=== PATIENT | female | born 2000 | race Hispanic/Latino ===

== ENCOUNTER 2023-02-24 22:58 | Inpatient (IN) | payer BC, SELFPAY ==
--- NOTE | 2023-02-24 22:58 | LDADM ---
This patient, Mercy Villalobos, was admitted to Labor/Delivery/Recovery 104 on 02/24/23 at 22:58. [employer] Weight Calculator used during admission and education. Plans for labor, pain management and were discussed with patient. Patient/family oriented to hospital policies and general routines including ID bracelet, bed and alarms, visiting hours, pain management, procedures, bathroom and other care routines, personal items, smoking policy, room service/diet and guest tray routines, security routines, and visiting hours. Patient/Family are encouraged to report perceived risks to care and to ask questions if they do not understand what they are told or what they should do. See OBIX for further documentation.
[2023-02-24 23:17] VITALS: RESP 18; TEMP 37
[2023-02-24 23:36] LABS: Basophils Absolute Auto 0.1 K/mm3 (0.0-0.1); Basophils Percent Auto 0.3 % (0.2-1.2); Eosinophils Percent Auto 0.2 % (0-4.4); Hematocrit 37.8 % (37.0-47.0); Hemoglobin 12.3 g/dL (12.0-15.0); Immature Granulocyte Absolute 0.07 K/mm3 (0.00-0.031); Immature Granulocyte Percent A 0.4 % (0-0.5); Lymphocytes Absolute Auto 2.07 K/mm3 (0.9-3.2); Lymphocytes Percent Auto 12.8 % (18.3-44.2); Mean Corpuscular HGB Conc 32.5 g/dl (32-36); Mean Corpuscular Hemoglobin 27.3 pg (26-34); Mean Corpuscular Volume 83.8 fl (80-100); Mean Platelet Volume 11.4 fl (7.4-10.4); Monocytes Absolute Auto 0.7 K/mm3 (0.1-0.6); Monocytes Percent Auto 4.6 % (2.6-8.5); Neutrophils Absolute Auto 13.2 K/mm3 (1.3-6.7); Neutrophils Percent Auto 81.7 % (45.5-73.1); Platelet Count Result 238 k/mm3 (150-375); Red Blood Count 4.51 M/mm3 (4.2-5.4); Red Cell Distribution Width 15.6 % (11.5-14.5); White Blood Count 16.1 K/mm3 (4.5-10.0)
[2023-02-24 23:48] VITALS: BP 124/87; PULSE 82
[2023-02-25] VITALS (160 sets, daily range): BP systolic 95–134; BP diastolic 38–101; PULSE 52–213; RESP 16; TEMP 36.5–37.3; O2SAT 71–100; BMI 30.5
--- NOTE | 2023-02-25 00:01 | WPDANESEPP ---
Anes - Eval Pre Procedure Procedure: Labor epidural Date/Time: 02/25/23 00:01 Pre Op Diagnosis: ctx Patient Data Age: 22 Gender: F Height: Weight: Last Vital Signs Pulse 87 02/25/23 00:01 BP 127/84 02/25/23 00:01 Allergies Allergy/AdvReac Type Severity Reaction Status Date / Time tetracycline Allergy Rash Verified 02/24/23 23:39 Home Medications Medication Instructions Recorded Confirmed Type prenat.vits,mildred,mbr-ptlw-alrhh 1 tablet PO DAILY 02/24/23 02/24/23 History Laboratory Tests 02/24/23 23:30 WBC 16.1 H K/mm3 (4.5-10.0) RBC 4.51 M/mm3 (4.2-5.4) Hgb 12.3 g/dL (12.0-15.0) Hct 37.8 % (37.0-47.0) MCV 83.8 fl (80-100) MCH 27.3 pg (26-34) MCHC 32.5 g/dl (32-36) RDW 15.6 H % (11.5-14.5) Plt Count 238 k/mm3 (150-375) MPV 11.4 H fl (7.4-10.4) Immature Gran % (Auto) 0.4 % (0-0.5) Neut % (Auto) 81.7 H % (45.5-73.1) Lymph % (Auto) 12.8 L % (18.3-44.2) [place] % (Auto) 4.6 % (2.6-8.5) Eos % (Auto) 0.2 % (0-4.4) Baso % (Auto) 0.3 % (0.2-1.2) Lymph # (Auto) 2.07 K/mm3 (0.9-3.2) [place] # (Auto) 0.7 H K/mm3 (0.1-0.6) Eos # (Auto) 0.0 K/mm3 (0-0.3) Baso # (Auto) 0.1 K/mm3 (0.0-0.1) Abs Immat Gran (auto) 0.07 H K/mm3 (0.00-0.031) Absolute Neuts (auto) 13.2 H K/mm3 (1.3-6.7) Absolute Nucleated RBC 0.0 K/mm3 (0.0-0.012) Nucleated RBC % 0.0 % (0.0-0.2) RPR Pending Patient hx anesthesia problems: none Family hx anesthesia problems: none Results Review: All pre-operative results and documents have been reviewed as part of the pre-operative evaluation. [facility] Social History Social History Smoking status: Never smoker Substance use: never Lack of Transportation: No Lack of Food: Never True Current Housing: I Have Housing Concerned About Future Housing: No Difficulty Paying Gas/Electric Bills: No Difficulty Paying for Meds: No Currently Unemployed: No Education: High School Diploma/GED Difficulty w/ Childcare or Family Care: No Spiritual care concerns: No Exam Day of Procedure 02/25/23 00:01 Patient weight: overweight Heart: regular rate and rhythm Lungs: normal air movement Airway: Mallampati scale Neurological: alert and oriented
[2023-02-25] MEDS: LACTATED RINGERS 1,000 ML 125 ML IV CONT ×2 (00:23→00:31)
[2023-02-25] MEDS: OXYTOCIN 30 UNITS/NS 500 ML 30 UNITS/500 ML BAG 999 UNITS IV CONT (08:06)
--- NOTE | 2023-02-25 08:16 | WPDHPUPDATE1 ---
History and Physical Update Update Date/Time: 02/25/23 08:16 History and Physical has been reviewed, including an updated exam of the patient. There are NO changes in the patient's condition. Risks, benefits, and alternatives have been discussed and questions answered. Patient agrees to proceed with procedure.
--- NOTE | 2023-02-25 08:16 | WPDOBADMIT ---
Obstetrics - Admit Note Admission Note: record reviewed. No pertinent additions to the history and/or any subsequent changes in the physical findings that are not consistent with the expected course of the were found. Additions to the history and/or subsequent changes in the physical findings follow. None.
--- NOTE | 2023-02-25 08:16 | PM.OBPRVD ---
OB - Vaginal Delivery Note Procedure Delivery date: 02/25/23 Induction method: None Delivery augmentation: Rupture of Membranes and Pitocin Delivery monitor: External FHT and External Uterine Route of delivery: Episiotomy description: None Laceration Description: Perineal - 2nd Degree Delivery repair: chromic Specimen: Yes Quantitative Blood Loss (ml): 200 Anesthesia type: Epidural Disposition: Floor Complications: No immediate complications Narrative: Patient prepped draped in usual manner for this procedure. Maternal expulsive efforts readily delivered vertex over intact perineum. Rest of baby delivered without difficulty, cord clamped cut, placenta delivered spontaneously. Cervix vagina vulva were inspected with small second-degree laceration noted. 2-0 chromic was used to approximate the vaginal tissue running interlocking manner, subcuticular layer approximated to approximate the skin edges. There was no significant bleeding and the immediate postoperative condition of mother baby were both excellent. Baby Weeks of gestation at delivery: 39 gender: Female Weight (pounds): 6 Weight (ounces): 10 presentation: vertex position: Right Occiput Anterior Placenta delivery description: Spontaneous Cord Vessel Description: 3 Vessels score one minute: 8 score five minutes: 9 AMG Delivery Billing Delivery Delivery: Delivery Charge
[2023-02-25] MEDS: OXYTOCIN 30 UNITS/NS 500 ML 30 UNITS/500 ML BAG 125 UNITS IV CONT (08:40)
[2023-02-25] MEDS: ACETAMINOPHEN 325 MG TABLET 650 MG PO ×2 (10:07→16:51)
[2023-02-25] MEDS: IBUPROFEN 600 MG TABLET PO ×2 (10:07→16:52)
[2023-02-25] MEDS: WITCH HAZEL 40 PADS 1 PAD TOPICAL (10:08)
[2023-02-25] MEDS: BENZOCAINE 20% AER SPR (*SP) 56 GM CAN 1 SPRAY TOPICAL (10:08)
--- NOTE | 2023-02-25 10:42 | OBPPTRN ---
Patient transferred to post room #283 via wheelchair. Support person present. Oriented to unit, room, information board, rooming in, admission packet and security measures. Patient verbalizes understanding.
[2023-02-25] MEDS: DOCUSATE SODIUM 100 MG CAPSULE PO (16:51)
[2023-02-26] VITALS: BP 114/72; PULSE 70; RESP 18; TEMP 36.9; O2SAT 98
[2023-02-26] MEDS: IBUPROFEN 600 MG TABLET PO ×3 (00:18→16:11)
[2023-02-26] MEDS: ACETAMINOPHEN 325 MG TABLET 650 MG PO ×3 (00:18→16:11)
[2023-02-26 05:20] LABS: Hematocrit 31.4 % (37.0-47.0); Hemoglobin 10.2 g/dL (12.0-15.0)
--- NOTE | 2023-02-26 07:47 | PM.GYNPNOP ---
CODE ENFORCEMENT INSPECTOR - A/P Time Spent With Patient Time: Total time spent is greater than 50% in coordination of care (as documented) at patient's floor/unit and/or counseling patient: Time with patient: less than 15 minutes CODE ENFORCEMENT INSPECTOR- PN:Subj Post-Op Subjective Date/time seen: 02/26/23 07:47 Overall doing well. No significant bleeding or pain. Vital signs stable afebrile Abdomen soft no guarding rebound fundus appropriately tender Labs noted Routine [facility] tomorrow Follow-up with regular OB provider in 1 week CODE ENFORCEMENT INSPECTOR - PN: Obj Data Vital Signs Vital Signs: Vital Signs - 24 hr 02/25/23 07:49 02/25/23 07:54 02/25/23 07:59 Temperature Pulse Rate Respiratory Rate Blood Pressure Pulse Oximetry 100 99 100 Oxygen Delivery 02/25/23 08:00 02/25/23 08:01 02/25/23 08:04 Temperature Pulse Rate 70 Respiratory Rate Blood Pressure 127/76 Pulse Oximetry 94 78 L Oxygen Delivery 02/25/23 08:09 02/25/23 08:14 02/25/23 08:16 Temperature Pulse Rate 91 Respiratory Rate Blood Pressure 125/78 Pulse Oximetry 98 97 Oxygen Delivery 02/25/23 08:19 02/25/23 08:31 02/25/23 08:46 Temperature Pulse Rate 65 66 Respiratory Rate Blood Pressure 124/57 L 118/67 Pulse Oximetry 99 Oxygen Delivery 02/25/23 09:01 02/25/23 09:16 02/25/23 09:31 Temperature Pulse Rate 76 64 73 Respiratory Rate Blood Pressure 123/75 124/69 117/69 Pulse Oximetry Oxygen Delivery 02/25/23 09:46 02/25/23 10:35 02/25/23 11:00 Temperature Pulse Rate 83 66 Respiratory Rate Blood Pressure 126/72 114/77 Pulse Oximetry Oxygen Delivery Room Air 02/25/23 11:00 02/25/23 15:00 02/25/23 15:00 Temperature 98.4 F 98.6 F Pulse Rate 61 60 Respiratory Rate 16 16 Blood Pressure 124/70 102/56 L Pulse Oximetry 99 99 Oxygen Delivery Room Air 02/26/23 00:00 Temperature 98.4 F Pulse Rate 70 Respiratory Rate 18 Blood Pressure 114/72 Pulse Oximetry 98 Oxygen Delivery Intake/Output Intake/Output: Intake & Output 02/23/23 02/24/23 02/25/23/03/23 23:59 23:59 23:59 23:59 Intake Total 1999 Output Total 1500 Balance 500 Meds/Results Medications: Active Medications Generic Name Dose Route Start Last Admin Trade Name Freq PRN Reason Stop Dose Admin Acetaminophen 650 mg 02/25/23 09:24 02/26/23 00:18 Acetaminophen 325 Mg Tablet PO 650 mg Q6H PRN Administration Mild Pain (1-3) or Headache Benzocaine 1 spray 02/25/23 09:24 02/25/23 10:08 Benzocaine 20% Aer Spr (*Sp) 56 Gm Can TOPICAL 1 spray PRN PRN Administration Perineal Discomfort Dibucaine 1 applic 02/25/23 09:24 Dibucaine 1% Ointment 30 Gm Tube TOPICAL PRN PRN Hemorrhoids Docusate Sodium 100 mg 02/25/23 09:24 02/25/23 16:51 Docusate Sodium 100 Mg Capsule PO 100 mg BID PRN Administration Constipation Emollient Ointment 1 applic 02/25/23 09:24 Lanolin (Lansinoh) 7.5 Gm Cream TOPICAL PRN PRN Sore Nipples Ibuprofen 600 mg 02/25/23 09:24 02/26/23 00:18 Ibuprofen 600 Mg Tablet PO 600 mg Q6H PRN Administration Cramping Ondansetron HCl 4 mg 02/25/23 09:24 Ondansetron Inj 4 Mg/2 Ml Vial IV PUSH Q6H PRN Nausea Vit/Calcium/Iron/Folic Ac 1 tab 02/25/23 09:24 02/25/23 12:40 Multivit/Min/Pren/Fol Ac/Iron Tablet PO Not Given DAILY SHEYLA Simethicone 80 mg 02/25/23 09:24 Simethicone 80 Mg Tab.Chew PO Q2H PRN Gas Witch Tiffany 1 pad 02/25/23 09:24 02/25/23 10:08 Witch Tiffany 40 Pads TOPICAL 1 pad PRN PRN Administration Perineal Discomfort Zolpidem Tartrate 5 mg 02/25/23 09:24 Zolpidem Tartrate (*Crx) 5 Mg Tablet PO HS PRN Insomnia Labs 02/26/23 03:44 Labs: Laboratory Results - last 24 hr 02/26/23 03:44 Hgb 10.2 L Hct 31.4 L
--- NOTE | 2023-02-26 07:48 | PM.OBDSVD ---
DS: Admitting Diagnosis Discharge Date 02/27/2023 Admitting Diagnosis DS: Discharge Diagnosis Discharge Diagnosis (1) , delivered: Code(s): O80 - Encounter for full-term uncomplicated delivery Status: Acute OB - DS: Summary OB Procedures : None OB Procedures Intrapartum: Spontaneous Vag Delivery OB Procedures: : None Peripartum Data Laceration Description: Perineal - 2nd Degree Episiotomy description: None Time Spent with Patient Time attestation: Total time spent providing and/or coordinating discharge services: DS: Data Data Completed and Pending Labs on day of discharge: Labs from last 24 hours 02/26/23 03:44 Hgb 10.2 L Hct 31.4 L Discharge Plan Discharge Discharging Clinician: Walker Kelly Patient Disposition: Home, Self-Care Activity: as tolerated Diet: as tolerated Patient Instructions: Antibiotic Form Stand Alone Forms: General Discharge Information Follow-up/Referrals: UNKNOWN,DOCTOR [Primary Care Provider] - 1 Week (Follow-up with care provider in 1 week) Discharge Medications: New ibuprofen 600 mg Tablet 600 mg PO Q6H PRN (Reason: Cramping) Qty: 20 0RF Continued Vitamin Tablet 1 tablet PO DAILY Date of admission: 02/24/23 22:58 Primary Care Provider: UNKNOWN,DOCTOR Admitting Provider: Walker Kelly Attending physician on admission: Walker Kelly Condition: Stable
[2023-02-26 08:35] VITALS: BP 126/76; PULSE 64; RESP 16; TEMP 36.7; O2SAT 98
[2023-02-26] MEDS: MULTIVIT/MIN/PREN/FOL AC/IRON TABLET 1 TAB PO (08:38)
[2023-02-26] MEDS: DOCUSATE SODIUM 100 MG CAPSULE PO ×2 (08:38→16:11)
[2023-02-26 20:00] VITALS: BP 112/73; PULSE 60; RESP 18; TEMP 36.3; O2SAT 100
[2023-02-27] MEDS: IBUPROFEN 600 MG TABLET PO (05:07)
[2023-02-27 08:05] VITALS: BP 113/65; PULSE 67; RESP 16; TEMP 36.5; O2SAT 99
[2023-02-27] MEDS: DOCUSATE SODIUM 100 MG CAPSULE PO (09:07)
[2023-02-27] MEDS: MEASLES,MUMPS,RUBELLA VACCINE 0.5 ML VIAL SUB-Q (09:12)
--- NOTE | 2023-02-27 09:31 | PC.NURSE ---
0954 RADHA translated for MOB for the assessment. She V/U'd.
[2023-02-27] MEDS: ACETAMINOPHEN 325 MG TABLET 650 MG PO (09:33)
[2023-02-27 16:17] LABS: Rapid Plasma Reagin Non-Reactive (NonReactive)
--- NOTE | 2023-02-27 17:59 | PC.NURSE ---
1300 Patient viewed the discharge video Mother & Baby Care, The First Two Weeks . Patient was given the opportunity and encouraged to ask questions. Patient verbalized understanding of information shared and has been given the mother/baby guide for home reference.
--- NOTE | 2023-02-28 13:55 | PM.OBDSVD ---
DS: Admitting Diagnosis Discharge Date 02/27/23 OB - DS: Summary Peripartum Data Laceration Description: Perineal - 2nd Degree Episiotomy description: None Time Spent with Patient Time attestation: Total time spent providing and/or coordinating discharge services: DS: Data Data Completed and Pending Pending studies at discharge: Pending at discharge 02/27/23 10:49 Surgical [PTH] Routine Labs on day of discharge: Labs from last 24 hours 02/24/23 23:30 RPR Non-reactive Discharge Plan Discharge Consulting providers: Lexie Guajardo Discharging Clinician: Walker Kelly Patient Disposition: Home, Self-Care Activity: as tolerated Diet: as tolerated Discharge Instructions: Education: Mom and Baby Guide Given to: Mother Follow-Up: Call your delivering provider's office for an appointment to be seen in: 1 Week Mom and baby should come to the [facility] for the follow-up appointment. Appointment Date/Time: Wednesday, March 01, 2023 at 10:00 am What to expect at your follow-up visit: Physical Assessment Call [phone] if you are unable to keep your appointment time. BREAST CARE: * Wear a snug supportive bra. * For engorgement discomfort: Bottle Feeding: * May apply ice packs * For sore nipples: * Identify correct latch-on * Apply warm moist washcloths before and after nursing * Air dry nipples after nursing * May apply Lansinoh cream to nipples PERINEAL CARE: * Until bleeding stops, use your adarsh bottle after urinating * Change your pad frequently throughout the day * You may take sitz baths several times a day (fill your bathtub with warm water and soak for 20 minutes.) Do NOT bathe in the water * No tub baths until seen by your physician - You may shower ACTIVITY: * Rest as much as possible. * Do not exercise or lift anything heavier than your baby (such as laundry or other children.) * Avoid stairs or driving as much as possible. * Do not put anything into the vagina. No douching, tampons, or sexual activity until seen by physician. NOTIFY PHYSICIAN IF YOU HAVE ANY QUESTIONS OR IF ANY OF THE FOLLOWING SYMPTOMS OCCUR: * If your episiotomy or incision becomes red, swollen, or more painful than what you have experienced in the hospital. * If your vaginal bleeding becomes foul smelling. * If your vaginal bleeding becomes more heavy than a period or if your bleeding changes from pink to bright red. However, you may pass an occasional walnut-sized clot once or twice for the first week . * If you experience a sharp, shooting pain in you calves. * If you discover a hard, reddened area on your breast or if you experience flu-like symptoms. DIET: * Eat regular, well-balanced meals. * Drink plenty of fluids daily. If , drink to thirst. Follow-up/Referrals: UNKNOWN,DOCTOR [Primary Care Provider] - 1 Week (Follow-up with care provider in 1 week) Discharge Medications: New ibuprofen 600 mg Tablet 600 mg PO Q6H PRN (Reason: Cramping) Qty: 20 0RF Continued prenat.vits,mildred,[id number]-vyce-fwggx Tablet 1 tablet PO DAILY Date of admission: 02/24/23 22:58 Primary Care Provider: UNKNOWN,DOCTOR Admitting Provider: Walker Kelly Attending physician on admission: Walker Kelly Condition: Stable
[2023-03-01 10:16] VITALS: BP 120/78; PULSE 83; RESP 18; TEMP 37.1; O2SAT 100
== END 2023-02-27 14:00 | disposition home or self-care (01) | DRG 560 ==
LOC: ANHLDR 02-25 04:36 → ANHOB2 02-26 07:49 → ANHLDR 02-26 09:51 → ANHOB2 02-26 09:51
PROVIDERS: Admitting Provider Obstetrics & Gynecology; Visit Provider Obstetrics & Gynecology
DX: O69.3XX0 Labor and delivery complicated by short cord, not applicable or unspecified (principal); O70.1 Second degree perineal laceration during delivery; Z3A.39 39 weeks gestation of pregnancy; Z37.0 Single live birth
CPT/HCPCS: 36415; 85014; 85018; 85025; 86592; 86850; 86900; 86901; 88307; 90710; A9270; J2590; J2795; J7120